=== PATIENT | female | born 1985 | race African-American/Black ===

== ENCOUNTER 2023-12-28 21:49 | Emergency (ER) | payer OTHER ==
[2023-12-28 21:58] VITALS: BMI 41.5
[2023-12-28 23:31] VITALS: BP 115/60; PULSE 69; RESP 18; TEMP 97.8
== END 2023-12-28 23:47 | disposition home or self-care (01) ==
LOC: JER 21:49
DX: F41.0 Panic disorder [episodic paroxysmal anxiety] (principal); R42 Dizziness and giddiness; R07.89 Other chest pain; R23.2 Flushing
CPT/HCPCS: 93005; 93010; 99283-25